=== PATIENT | female | born 1975 | race Caucasian/White ===

== ENCOUNTER 2020-10-21 11:19 | Outpatient (CLI) | payer OTHER | END 2020-10-21 11:28 | disposition home or self-care (01) | LOC: MAMO-SONO 11:19 | DX: Z12.31 Encounter for screening mammogram for malignant neoplasm of breast (principal); N60.11 Diffuse cystic mastopathy of right breast; N60.12 Diffuse cystic mastopathy of left breast ==

== ENCOUNTER 2021-01-05 12:54 | Emergency (ER) | payer OTHER ==
[~2021-01-05] VITALS: Ht 167.6 cm; Wt 56.7 kg
== END 2021-01-05 14:39 | disposition home or self-care (01) ==
LOC: ER 12:54
DX: B01.9 Varicella without complication (principal)

== ENCOUNTER 2024-10-25 23:06 | Emergency (ER) | payer OTHER ==
[~2024-10-25] VITALS: Ht 167.6 cm; Wt 59.0 kg
== END 2024-10-26 | disposition left against medical advice (07) ==
LOC: ER 23:09
DX: Z53.21 Procedure and treatment not carried out due to patient leaving prior to being seen by health care provider (principal)